=== PATIENT | female | born 1945 | race Caucasian/White ===

== ENCOUNTER 2017-02-05 11:44 | Emergency (ER) | payer MEDICARE, BC ==
--- NOTE | 2017-02-05 12:12 | EDM.PDOC ---
ED HPI HEAD INJURY - General Chief Complaint: Head Injury Stated Complaint: [facility] Time Seen by Provider: 02/05/17 12:07 Source of Information: Reports: Patient History Limitations: Reports: No limitations - History of Present Illness INITIAL COMMENTS - FREE TEXT/NARRATIVE: 71-year-old female reports to the ED per ambulance. She reports that she was trying to transfer from bed to wheelchair and lost her balance. She fell forward and struck left face and fore head on a piece of furniture. She did not lose consciousness. She had active bleeding from 2 large lacerations to her left alessandro-face. She was able to scoot over to the phone on her derrire. She was able to call 911. Tetanus toxoid was last updated 2 years ago. She has no pain in her neck. She has a small scrape to her right elbow but no other injuries. 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: Other (see below) - Related Data Allergies/ADRs: Allergies Allergy/AdvReac Type Severity Reaction Status Date / Time cortisone [Cortisone] Allergy Rash Verified 02/05/17 11:56 Penicillins Allergy Rash Verified 02/05/17 11:56 Sulfa (Sulfonamide Allergy Rash Verified 02/05/17 11:56 Antibiotics) Home Meds: Home Meds Citalopram [Citalopram HBr] 1 tab PO DAILY 02/05/17 [History] Levothyroxine [Synthroid] 0 mcg PO ACBREAKFAST 02/05/17 [History] Simvastatin [Zocor] 0 mg PO BEDTIME 02/05/17 [History] Tolterodine Tartrate [Detrol LA] 4 mg PO DAILY 02/05/17 [History] traZODone HCl [Trazodone HCl] 0 mg PO DAILY 02/05/17 [History] Past Medical History Cardiovascular History: Reports: High cholesterol Genitourinary History: Reports: Retention, urinary, Other (see below) ( Overactive bladder.) Musculoskeletal History: Reports: Other (see below) Other Musculoskeletal History: polio, contractures, wears special shoes . Travels by way of wheelchair. Psychiatric History: Reports: Depression Endocrine/Metabolic History: Reports: Hypothyroidism (On supplement.) Social & Family History - Family History Family Medical History: Noncontributory - Tobacco Use Smoking Status *Q: Never Smoker Second Hand Smoke Exposure: No - Caffeine Use Caffeine Use: Reports: None - Recreational Drug Use Recreational Drug Use: No - Living Situation & Occupation Living situation: Reports: single Occupation: disabled ED ROS GENERAL - Review of Systems Review Of Systems: See Below Constitutional: Denies: fever, chills, malaise, weakness, fatigue HEENT: Denies: Eye discharge, Eye pain, Glasses, Hearing loss Respiratory: Reports: No Symptoms Cardiovascular: Reports: No symptoms Endocrine: Reports: no symptoms GI/Abdominal: Reports: Constipation Musculoskeletal: Reports: other (flexion contractures involving her wrists and hands.) Skin: Reports: other (Esterase and is left face and forehead.) Neurological: Reports: Other (No longer walks 2 to her severe polio.) Psychiatric: Reports: No symptoms ED EXAM, HEAD INJURY - Physical Exam Exam: See Below Exam Limited By: No limitations General Appearance: alert, anxious, mild distress, other (Obvious facial and head injuries.) Head: scalp swelling (Has a large 3 cm or greater laceration left frontal scalp just at the hairline. Scalp areas soaked in blood.), facial lacerations (Above the left eyebrow approximately 2.5 cm in length laceration. Marked swelling of the soft tissues above her left eye. Left upper lid is becoming ecchymotic and swollen.) Eyes: bilateral eye: normal inspection, PERRL Nose: normal inspection, normal mucousa Throat/Mouth: Normal inspection, Normal lips, Normal teeth, Normal oropharynx Neck: non-tender, full range of motion, normal alignment, normal inspection Respiratory: no respiratory distress, lungs clear, normal breath sounds, no accessory muscle use, decreased breath sounds (Breath sounds are mildly diminished in both lung bases. No adventitial sounds noted) Cardiovascular: normal peripheral pulses, regular rate, rhythm, no edema, no murmur Extremities: other (Is a superficial abrasion and skin tear to her right elbow over the olecranon process. It would not require any treatment.) - Brandy Coma Score Best Eye Response (Ermine): (4) open spontaneously Best Verbal Response (Ermine): (5) oriented Best Motor Response (Brandy): (6) obeys commands Ermine Total: 15 ED LACERATION/WOUND & YANN PROC - Laceration/Wound Repair Left Upper Face Lac/wound length in cm: 3.5 (Did laceration at the left upper forehead near the hairline.) Appearance: subcutaneous, clean Distal NVT: neuro & vascular intact Anesthetic type: local Local anesthesia - Lidocaine (Xylocaine): 1% plain Local anesthetic volume: 5cc Exploration/Debridement/Repair: wound explored Closed with: sutures Suture size: 4-0 # of sutures: 9 Suture type: nylon, interrupted, simple Course - Vital Signs Last Recorded V/S: Last Vital Signs Temp 36.2 C 02/05/17 11:51 Pulse 78 02/05/17 11:51 Resp 18 02/05/17 11:51 BP 154/96 H 02/05/17 11:51 Pulse Ox 96 02/05/17 11:51 - Orders/Labs/Meds Meds: Medications Discontinued Medications Generic Name Dose Route Start Last Admin Trade Name Saeid PRN Reason Stop Dose Admin Lidocaine HCl 50 ml 02/05/17 12:28 02/05/17 12:42 Xylocaine 1% INJECT 02/05/17 12:29 Not Given ONETIME ONE Lidocaine HCl 50 ml 02/05/17 12:30 02/05/17 12:41 Xylocaine 1% INJECT 02/05/17 12:31 50 ml ONETIME ONE Administration - Radiology Interpretation Free Text/Narrative:: 71-year-old female presents to the ED after a fall at home. She has severe polio and was trying to get from bed to wheelchair. Something happens and she fell face first into a piece of furniture. She has suffered blunt force trauma to the left alessandro-face and scalp. She has lacerations to the scalp and above her left eyebrow. Tetanus is up to date. Will definitely require suture repair. When CT head first. - Re-Assessments/Exams Free Text/Narrative Re-Assessment/Exam: 02/05/17 12:36 CT of the head reveals no skull fractures and no intracranial bleeding. Large amount of soft tissue swelling appreciated over the left frontal bone. There is air within the soft tissues indicating deep laceration. 02/05/17 13:39 lacerations on the left side of the face were cleansed and then sutured under local anesthetic. Superior laceration is 3.5 cm the inferior laceration is 2.5 cm. Sutures need to be removed in 8-10 days' time. Patient will have the wound cleansed daily and topical antibiotic such as bacitracin or Polysporin applied. Use Tylenol or Motrin for pain as needed. Departure - Departure Time of Disposition: 13:40 Disposition: Home, Self-Care 01 Condition: fair Clinical Impression: Laceration of skin of scalp Qualifiers: Encounter type: initial encounter Qualified Code(s): S01.01XA - Laceration without foreign body of scalp, initial encounter Laceration of skin of forehead Qualifiers: Encounter type: initial encounter Qualified Code(s): S01.81XA - Laceration without foreign body of other part of head, initial encounter Closed head injury without concussion Qualifiers: Encounter type: initial encounter Qualified Code(s): S09.90XA - Unspecified injury of head, initial encounter Forms: ED Department Discharge Additional Instructions: Evaluation in the emergency room today in regards to injuries sustained from a fall while transferring from bed to wheelchair. Blunt force trauma to the left forehead and left frontal scalp at the hairline occurred. The lacerations occurred in both of these areas. Contusion to the right hand over the third and fourth knuckles was also noted without evidence of bony injury. CT scan of the brain and head carried out reveals no intracranial bleeding orders mass effect. There is no fractures and no skull or facial bones. Wounds were cleansed and then sutured under local anesthetic. Sutures will need to be removed in 10 days ' time. Care at home is to daily cleanse the wounds with soap and water showering is okay. Then apply topical antibiotic such as bacitracin or Polysporin to the wounds at least once daily and preferably twice daily. This prevents infection from occurring. Suggest ice pack to the left eyelid area for 120 minutes out of every 4 hours to try reduce further swelling. Swelling will take 2-3 days to go down in the upper eyelid. They use Tylenol or ibuprofen as needed for pain relief. ED LACERATION PROCEDURES - Laceration/Wound Repair Left Upper Face Lac/wound length in cm: 2.5 (Stellate laceration above the left eyebrow.) Appearance: subcutaneous Distal NVT: neuro & vascular intact Anesthetic type: local Local anesthesia - Lidocaine (Xylocaine): 1% plain Local anesthetic volume: 3cc Closed with: sutures Suture size: other (5-0) # of sutures: 8 Suture type: nylon, interrupted, simple
[2017-02-05] MEDS ORDERED: Lidocaine 1% 10 ML MDV INJECT ONE (12:28)
[2017-02-05] MEDS ORDERED: Lidocaine 1% 50 ML MDV INJECT ONE (12:30)
--- NOTE | 2017-02-05 13:05 | CT ---
Head CT Technique: Multiple axial sections through the brain were obtained. Intravenous contrast was not utilized. Comparison: No previous head CT exam, previous MRI study of the brain dated 08/09/14 is available. Findings: Ventricles along the basal cisterns and sulci over the convexities are mildly prominent. No abnormal parenchymal densities are seen. No evidence of intracranial hemorrhage. No midline shift or mass effect is seen. Soft tissue hematoma and swelling is seen within the left frontal scalp and left periorbital region. Air is noted within the soft tissues of the frontal scalp as well consistent with soft tissue laceration. Bone window settings shows no calvarial fracture. Impression: 1. Soft tissue hematoma and soft tissue swelling as well as soft tissue air within the left frontal scalp and left periorbital region. 2. No acute intracranial abnormality is identified. No skull fracture is seen. Diagnostic code #2
[2017-02-05 15:00] VITALS: BP 115/85
== END 2017-02-05 14:40 | disposition home or self-care (01) ==
LOC: JD.ED 11:44
DX: S01.81XA Laceration without foreign body of other part of head, initial encounter (principal); S01.01XA Laceration without foreign body of scalp, initial encounter; W06.XXXA Fall from bed, initial encounter; Y92.009 Unspecified place in unspecified non-institutional (private) residence as the place of occurrence of the external cause; E78.00 Pure hypercholesterolemia, unspecified; E03.9 Hypothyroidism, unspecified; F32.9 Major depressive disorder, single episode, unspecified; Z88.0 Allergy status to penicillin; Z88.2 Allergy status to sulfonamides; Z88.8 Allergy status to other drugs, medicaments and biological substances; Z79.899 Other long term (current) drug therapy
CPT/HCPCS: 12014; 70450; 70450-26; 99282; 99284-25